=== PATIENT | male | born 1985 | race African-American/Black ===

== ENCOUNTER → 2017-07-14 | Day surgery (SDC) | payer OTHER | END | disposition home or self-care (01) | LOC: FIMAGING 14:21 | PROVIDERS: ATTEND Internal Medicine Infectious Disease | PROC: 02HV33Z Insertion of Infusion Device into Superior Vena Cava, Percutaneous Approach (ICD-10-PCS; principal; 2017-07-14) | DX: M86.9 Osteomyelitis, unspecified (principal); Z22.322 Carrier or suspected carrier of Methicillin resistant Staphylococcus aureus; Z79.2 Long term (current) use of antibiotics | CPT/HCPCS: 36569; 77001; C1751 ==